=== PATIENT | male | born 1965 | race Caucasian/White ===

== ENCOUNTER → 2017-09-15 | Outpatient (CLI) | payer MEDICAID ==
[~2017-09-15] MED LIST: IOPAMIDOL (ISOVUE 370) 100 ML BTL IV ONE
== END ==
LOC: FIMAGING 15:06
PROVIDERS: ATTEND Surgery
DX: I70.212 Atherosclerosis of native arteries of extremities with intermittent claudication, left leg (principal); I82.432 Acute embolism and thrombosis of left popliteal vein; R93.8 Abnormal findings on diagnostic imaging of other specified body structures
CPT/HCPCS: Q9967